=== PATIENT | male | born 1970 | race Caucasian/White ===

== ENCOUNTER → 2021-06-09 02:14 | Outpatient (CLI) | payer BC, SELFPAY ==
[2021-06-09 13:42] LABS: Influenza Control Positive
[2021-06-09 20:34] LABS: SARS-CoV-2 RNA PCR Positive
== END ==
PROVIDERS: PCP Family Medicine; Visit Provider Physician Assistant
DX: R50.9 Fever, unspecified (principal); R68.89 Other general symptoms and signs; R05.9 Cough, unspecified; U07.1 COVID-19
CPT/HCPCS: 87804; C9803; U0003; U0005

== ENCOUNTER 2022-07-18 13:47 | Outpatient (NON) | payer BC, SELFPAY | END 2022-07-18 13:48 | disposition home or self-care (01) | PROVIDERS: PCP Family Medicine; Visit Provider Nurse Practitioner | DX: L02.214 Cutaneous abscess of groin (principal) | CPT/HCPCS: 87070; 87075; 87147; 87181; 87186; 87205 ==

== ENCOUNTER 2024-12-13 15:07 | Emergency (ER) | payer BC, SELFPAY ==
--- NOTE | ~2024-12-13 | XR_ITS ---
EXAM: XR knee RT 3V DATE: 12/13/2024 15:48 HISTORY: pain with trauma . COMPARISON: None available. FINDINGS: Decreased mineralization. No fracture. Suggestion of lateral patellar subluxation in the f rontal and oblique views, patella is normally located in the sunrise view. No lytic or blastic lesion . Status post ACL repair. Moderate tricompartmental osteoarthritis. No erosion or periosteal change. Suggestion of inferior patellar tendon thickening with overlying subcutaneous stranding. Small knee j oint effusion. IMPRESSION: No acute fracture detected. Possible patellar tendon injury, correlate for pain/tendernes s, or mechanism of injury/symptoms that would suggest prior patellar dislocation with subsequent relo cation. Reviewed, dictated and finalized at location K. IMPRESSION: No acute fracture detected. Possible patellar tendon injury, correl ate for pain/tenderness, or mechanism of injury/symptoms that would suggest john or patellar dislocation with subsequent relocation.
--- OUTSIDE RECORDS SUMMARY | 2024-12-13 15:09 | XMS_ITS | Clinical Summary ---
Author Organization [facility] Address [address] [place] [id number] Care Team Providers Care Firearms Model Maker Name Role Phone Unavailable Primary Care Provider Unavailabl e Social History Tobacco Use Types Packs/Day Years Used Date Smoking Tobacco: Never Assessed Sex and Gender Information Value Date Recorded Sex Assigned at Not on file Legal Sex Male 7:21 PM CDT Gender Identity Not on file Sexual Orientation Not on file Plan of Treatment Health Maintenance Due Date Last Done Comments Colorectal Cancer Screening Colonoscopy (10 Years) 1972 Annual Physical 1975 Hepatitis C 1990 DTaP, Tdap and Td Vaccines ( 1 - Tdap) 1991 Pneumococcal Vaccine: 50+ Years (1 of 1 - PCV) 2022 Zoster Vaccines (1 of 2) 2022 COVID-19 Vaccine (1 - 2023-2 5 season) 2024 Hepatitis B Vaccines Completed 01/06/2016, 08/03/2015, 07/06/2015 Meningococcal B Vaccine Aged Out No l onger eligible based on patient's age to complete this topic Meningococcal Vaccine Aged Out No vijay nitin eligible based on patient's age to complete this topic RSV Immunizations Under 20 Months Aged Out No longer eligible b ased on patient's age to complete this topic
--- OUTSIDE RECORDS SUMMARY | 2024-12-13 15:09 | XMS_ITS | Clinical Summary ---
Author Organization [facility] Address [address] [place] [address] Phone Care Team Providers Care Classroom Paraprofessional Name Role Phone Heri Pagan MD Primary Care Provider Allergies Active Allergy Reactions Criticality Noted Date Comments Lisinopril Other (see Comments) 08/21/2023 COUGH Medications TRULICITY 0.75 MG/0.5ML Solution Pen-injector TAKES ON SUNDAY NIGHTS 5 9 Active fenofibrate 160 MG Tablet Take 160 mg by mouth nightly. 4 9 Active metFORMIN (GLUCOPHAGE-XR) 500 MG TABLET SR 24 HR TK 4 TS PO QD WITH THE SNEHA MEAL 1 9 Active pioglitazone (ACTOS) 45 MG Tablet TK 1 T PO ONCE QHS 3 9 Active ondansetron (ZOFRAN-ODT) 4 MG TABLET DISPERSIBLEIndi cations:Flu-lik e symptoms Take 1 Tab by mouth every 8 hours as needed for Nausea - 1st line. 10 Tab 9 Active Additional Information Patient not taking.Reported on 06/16/2021 albuterol 108 (90 Base) MCG/ACT Aerosol Solution INHALE 1 PUFF BY MOUTH EVERY 4 HOURS NEEDED FOR SHORTNESS OF BREATH OR WHEEZING 1 Active furosemide (LASIX) 20 MG Tablet Take 20 mg by mouth daily as needed. 9 Active guaiFENesin-cod eine (guaiFENesin AC) 100-10 MG/5ML Solution TAKE 5 ML BY MOUTH EVERY 6 HOURS NEEDED FOR COUGH 2 Active potassium chloride CR (KLORCON) 10 MEQ Tablet Controlled Release Take 10 mEq by mouth daily as needed. 9 Active acetaZOLAMIDE (DIAMOX) 250 MG Tablet Take 2 Tablets by mouth 2 times daily. 10 Tablet 4 Active Active Problems No known active problems Family History Medical History Relation Name Comments Aneurysm Father BRAIN STEM AND ABDOMINAL Heart Attack Father Hypertension Father Stroke Father Diabetes Mother Heart Attack Mother Relation Name Status Comments Father Mother Alive Social History Tobacco Use Types Packs/Day Years Used Date Smoking Tobacco: Never Smokeless Tobacco: Never Alcohol Use Standard Drinks/Week Comments Not Currently 0 (1 standard drink = 0.6 oz pur e alcohol) Sexually Active Control Partners Comments Not Currently Sex and Gender Information Value Date Recorded Sex Assigned at Not on file Legal Sex Male 4:56 PM CDT Gender Identity Not on file Sexual Orientation Not on file Last Filed Vital Signs Vital Sign Reading Time Taken Comments Blood Pressure 151/93 09/03/2023 1:12 PM CDT Pulse 71 09/03/2023 1:12 PM CDT Temperature 36.3 C (97.3 F) 09/03/2023 1:12 PM CDT Respiratory Rate 15 09/03/2023 1:12 PM CDT Oxygen Saturation 100% 09/03/2023 1:12 PM CDT Inhaled Oxygen Concentration - - Weight 164.7 kg (363 lb) 09/03/2023 10:25 AM CDT Height 180.3 cm (5' 11) 09/03/2023 10:25 AM CDT Body Mass Index 50.63 09/03/2023 10:25 AM CDT Plan of Treatment Health Maintenance Due Date Last Done Comments Hepatitis C Virus (HCV) Screening 1972 TdaP Immunization 1972 Cologuard 2017 Colonoscopy 2017 Colorectal Cancer Screening 2017 Immunochemical Fecal Occult Blood 2017 Pneumococcal Immunization (5 0+ years) (1 of 1 - PCV) 2022 Zoster Immunization (1 of 2) 2022 SARS-COV-2 Immunization ( - 2023- season) 2024 Influenza Immunization (Seas on Ended) 2025 Respiratory Syncytial Virus (RSV) Immunization (Adult) (1 - 1-dose 75+ series) 2047 Hepatitis B Immunization Completed 016, 08/03/2015, 07/06/2015 Human Papillomavirus (HPV) Immunization Aged Out No longer eligible b ased on patient's age to complete this topic Meningococcal Immunization (ACWY) Aged Out No longer eligible b ased on patient's age to complete this topic Rotavirus Immunization Aged Out No lo nger eligible based on patient's age to complete this topic Medical Devices Implanted Type Area Custodian Athletic Equipment Device Identifier Shelf Expiration Date Model / Serial / Lot Left Lens Implanted:Qty: 1 on 09/03/2023 by Magali George MD PhD at [facility] Left: Eye [employer] 04/10/2024 [id number] / [id number] / [id number] Insurance Care Teams Classroom Paraprofessional Relationship Specialty Start Date End Date Heri Pagan MD [address] [place] [address] PCP - General Family Medicine 09/03/23
--- OUTSIDE RECORDS SUMMARY | 2024-12-13 15:09 | XMS_ITS | Referral Summary ---
Author Organization [address] Address [address] [place] [address] Care Team Providers Care Transmission Repairer Name Role Phone Heri Pagan MD Primary Care Provider Allergies Active Allergy Reactions Criticality Noted Date Comments Codeine Hydrocodone Medications dulaglutide (TRULICITY) 0.75 mg/0.5 mL pen injector 9 Active metFORMIN XR (GLUCOPHAGE XR) 500 mg 24 hr tablet TK 4 TS PO QD WITH THE SNEHA MEAL 2 9 Active pioglitazone (ACTOS) 45 mg tablet TK 1 T PO ONCE QHS 9 Active furosemide (LASIX) 20 mg tablet TK 1 T PO QD 3 9 Active POTASSIUM CHLORIDE ER 10 mEq CR tablet TK 1 T PO QD WF 3 9 Active fenofibrate (TRIGLIDE) 160 mg tablet TK 1 T PO QD 1 9 Active albuterol HFA (PROVENTIL HFA,VENTOLIN HFA,PROAIR HFA) 90 mcg/actuation inhaler INHALE 1 PUFF BY MOUTH EVERY 4 HOURS NEEDED FOR SHORTNESS OF BREATH OR WHEEZING 2 Active fluticasone propionate (FLONASE) 50 mcg/actuation nasal sprayIndication s:Acute frontal sinusitis, recurrence not specified Administer 2 sprays into each nostril daily 3 each 4 Active cyclobenzaprine (FLEXERIL) 5 mg tabletIndicatio ns:Acute right-sided thoracic back pain Take 1 tablet (5 mg total) by mouth 3 (three) times a day as needed for muscle spasms 30 tablet 4 Active Active Problems Problem Noted Date Diagnosed Date Type 2 diabetes mellitus 10/25/2013 Overview (09/14/2016): DMII WO CMP NT ST UNCNTR Hyperlipidemia 10/25/2013 Overview (09/14/2016): HYPERLIPIDEMIA NEC/NOS Social History Tobacco Use Types Packs/Day Years Used Date Smoking Tobacco: Never Sex and Gender Information Value Date Recorded Sex Assigned at Not on file Legal Sex Male 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 Gender Identity Not on file Sexual Orientation Not on file Last Filed Vital Signs Vital Sign Reading Time Taken Comments Blood Pressure 144/82 07/07/2023 2:12 PM SCUBA DIVING INSTRUCTOR Pulse 82 07/07/2023 2:12 PM SCUBA DIVING INSTRUCTOR Temperature 36.6 C (97.9 F) 07/07/2023 2:12 PM SCUBA DIVING INSTRUCTOR Respiratory Rate 18 07/07/2023 2:12 PM SCUBA DIVING INSTRUCTOR Oxygen Saturation 99% 07/07/2023 2:12 PM SCUBA DIVING INSTRUCTOR Inhaled Oxygen Concentration - - Weight 162.2 kg (357 lb 9.4 oz) 07/07/2023 2:12 PM SCUBA DIVING INSTRUCTOR Height 180.3 cm (5' 10.98) 07/07/2023 2:[address] Body Mass Index 49.9 07/07/2023 2:12 PM SCUBA DIVING INSTRUCTOR Plan of Treatment Not on file Insurance [facility] Care Teams Transmission Repairer Relationship Specialty Start Date End Date Heri Pagan MD [address] [facility] [[email or web address] [address] [place] [address] PCP - General Family Medicine 06/17/23
--- OUTSIDE RECORDS SUMMARY | 2024-12-13 15:09 | XMS_ITS | Clinical Summary ---
Author Organization [address] Address [address] [facility] [place] [address] Care Team Providers Care E Commerce Marketing Manager Name Role Phone Heri Pagan MD Primary [...] UNCNTR Hyperlipidemia 10/25/2013 Overview (09/14/2016): HYPERLIPIDEMIA NEC/NOS Medical History Medical History Date Comments Hypertension Hypertension Diabetes mellitus (HCC) Diabetes Hyperlipidemia Hyperlipidemia Social History Tobacco Use Types Packs/Day Years Used Date Smoking Tobacco: Never Sex and Gender Information Value Date Recorded Sex Assigned at Not on file Legal Sex Male 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 Gender Identity Not on file Sexual Orientation Not on file Obstetrics History Last Filed Vital Signs Vital Sign Reading Time Taken Comments Blood Pressure 144/82 07/07/2023 2:12 PM AGENCY SALES DEVELOPMENT ASSOCIATE Pulse 82 07/07/2023 2:12 PM AGENCY SALES DEVELOPMENT ASSOCIATE Temperature 36.6 C (97.9 F) 07/07/2023 2:12 PM AGENCY SALES DEVELOPMENT ASSOCIATE Respiratory Rate 18 07/07/2023 2:12 PM AGENCY SALES DEVELOPMENT ASSOCIATE Oxygen Saturation 99% 07/07/2023 2:12 PM AGENCY SALES DEVELOPMENT ASSOCIATE Inhaled Oxygen Concentration - - Weight 162.2 kg (357 lb 9.4 oz) 07/07/2023 2:12 PM AGENCY SALES DEVELOPMENT ASSOCIATE Height 180.3 cm (5' 10.98) 07/07/2023 2:[address] Body Mass Index 49.9 07/07/2023 2:12 PM AGENCY SALES DEVELOPMENT ASSOCIATE Plan of Treatment Health Maintenance Due Date Last Done Comments Albumin Creatinine Ratio, Urine 1972 Colon Cancer Screening-Colonoscopy 1972 Depression Screening 1972 Hemoglobin A1C 1972 Hepatitis C Screening 1972 Prostate Cancer Screening-PSA 1972 eGFR 1972 Dilated Eye Exam 1972 Foot Exam 1972 Lipid Panel 1972 DTaP/Tdap/Td Vaccine (1 - Tdap) 1983 Regular Well Visit/Exam 18-64 1990 Pneumococcal vaccine <65 (1 of 2 - PCV) 1991 Zoster Vaccine (1 of 2) 2022 Influenza Vaccine (Season Ended) 2025 Hepatitis B Screening Completed 01/06/2016 , 08/03/2015, 07/06/2015 Insurance [id number] [id number] Care Teams E Commerce Marketing Manager Relationship Specialty Start Date End Date Heri Pagan MD [address] [place] [address] PCP - General Family Medicine 06/17/23
[2024-12-13 15:20] VITALS: BP 154/76; PULSE 88; RESP 16; TEMP 36.2; O2SAT 99
--- NOTE | 2024-12-13 15:33 | ED.LOWEXIN ---
HPI - Extremity Injury (Lower) General Chief Complaint: Extremity Injury, Lower Stated Complaint: Right Knee Pain patient presents to Express Care with complaints of right knee pain that began yesterday after he was throwing something away and slipped due to the knee giving out. Noted that he caught himself did not fall but then began to have significant pain in the knee. patient is walking with crutches due to pain. Denies bruising or redness. Related Data Home Medications ?Medication ?Instructions ?Recorded ?Confirmed ?Last Taken ?Type cholecalciferol (vitamin D3) 125 125 mcg PO DAILY 09/06/20 10/07/24 Unknown History mcg (5,000 unit) capsule Allergies Allergy/AdvReac Type Severity Reaction Status Date / Time ciprofloxacin (From Cipro) Allergy Unknown Verified 12/13/24 15:19 lisinopril AdvReac Mild Cough Verified 12/13/24 15:19 Review of Systems Constitutional: Constitutional: Reports as per HPI and Denies weakness Eyes: Eyes: Reports no additional eye complaints Cardiovascular: Cardiovascular: Reports no additional cardiovascular complaints Respiratory: Respiratory: Reports no additional respiratory complaints Gastrointestinal: Gastrointestinal: Reports no additional gastrointestinal complaints Genitourinary: Genitourinary: Reports no additional male genitourinary complaints Musculoskeletal: Musculoskeletal: Reports as per HPI, Reports arthralgias, Reports joint swelling and Denies muscle cramps Integumentary/Breasts: Skin/Breast: Reports as per HPI, Denies pruritus, Denies rash and Denies skin ulcer Neurologic: Reports as per HPI, Denies numbness and Denies weakness Psychiatric: Psychiatric: Reports no additional psychiatric complaints Endocrine: Endocrine: Reports no additional endocrine complaints Hematologic/Lymphatic: Hematologic/Lymphatic: Reports no additional hematologic/lymphatic complaints Allergic/Immunologic: Allergic/Immunologic: Reports no additional allergic/immunologic complaints [facility] Past Medical History Medical History PVD (posterior vitreous detachment), left eye Obesity Diabetes Surgical History Surgical History History of repair of ACL right History of repair of ACL 1999 Family History Family History Father Heart disease Hypertension Father Hypertension Cerebrovascular accident Family history of thoracic aortic aneurysm Mother Family history of diabetes mellitus in first degree relative Son Asthma Other Family history of polycystic kidney disease Social History Social History Smoking status: Never smoker Second hand tobacco smoke exposure: No Alcohol intake: never Substance use: never Substance use type: does not use Living arrangements: with family Occupation/Education: occupation Gender identity (if verbalized by the patient): Male Exam Const: General: healthy appearing and no acute distress Nutritional Appearance: well nourished Orientation/consciousness: patient oriented x3 Limitations: no limitations Resp: Effort & Inspection: normal respiratory effort Cardio: Rate: regular rate Skin: General skin exam: normal color Rashes: no rashes Wounds: no wounds Neuro: General: patient oriented x3 Speech: normal speech Gait exam (Neuro): gait abnormal (limited by pain, using crutches ) Extrem: Right lower extremity: knee Details: normal to inspection, tenderness Location: of the lateral joint line and abnormal ROM; inspection normal, no ecchymosis, no crepitus, no penetrating wound, no deformity and no unusual warmth Psych: Mental Status: mental status grossly normal Affect: normal affect Attitude: cooperative Course Course Level of Care: Express Care Visit Vital Signs Vital signs: Vital Signs Temperature 97.1 F L 12/13/24 15:20 Pulse Rate 88 12/13/24 15:20 Respiratory Rate 16 12/13/24 15:20 Blood Pressure 154/76 H 12/13/24 15:20 Pulse Oximetry 99 12/13/24 15:20 Oxygen Delivery Room Air 12/13/24 15:20 Temperature 97.1 F L 12/13/24 15:20 Pulse Rate 88 12/13/24 15:20 Respiratory Rate 16 12/13/24 15:20 Blood Pressure 154/76 H 12/13/24 15:20 Pulse Oximetry 99 12/13/24 15:20 Oxygen Delivery Room Air 12/13/24 15:20 MDM - Extremity Injury (Lower) MDM Narrative Medical decision making narrative: X-rays of knee ordered. Concerns for internal injury. Discharge instructions reviewed with patient, as well as provided in writing per nursing staff. The instructions also include specific and strict return/GO TO THE ER as well as f/u information. All questions have been answered, and the patient deny any further questions with discharge and discharge plan. Differential Diagnosis Differential diagnosis: Likely acute internal derangement of knee and other (knee sprain, arthritis ) Medical Records Attestation: I reviewed the patient's medical records. Imaging Data Attestation: I personally reviewed and interpreted this imaging study as follows: My impression: no acute findings. Arthritic changes noted. Radiologist's impression: IMPRESSION: No acute fracture detected. Possible patellar tendon injury, correlate for pain/tenderness, or mechanism of injury/symptoms that would suggest prior patellar dislocation with subsequent relocation. Reviewed, dictated and finalized at location K. Discharge Plan Discharge Clinical Impression: Acute pain of right knee Patient Disposition: Home Condition: Stable Instructions: Antibiotic Form, Knee Pain (ED), Arthritis (ED) Additional Instructions: Follow-up as needed with your orthopedic physician or primary care there is moderate arthritis noted and a small joint effusion ( collection of fluid) on your x-ray. Continue resting as much as possible. Use crutches as needed for weight-bearing. Continue to use brace for extra support. Ibuprofen or naproxen as directed consistently for the next several days. Ice applied as well as elevation as much as possible. Patient Language: Vietnamese Prescriptions: No Action Trulicity 1.5 mg/0.5 mL pen injector 1.5 mg subcut WEEKLY Qty: 2 5RF cholecalciferol (vitamin D3) 125 mcg (5,000 unit) capsule 125 mcg PO DAILY albuterol sulfate [ProAir HFA] 90 mcg/actuation HFA aerosol inhaler 1 puff INHALATION Q4H PRN (Reason: shortness of breath or wheezing) Qty: 8.5 2RF fenofibrate 160 mg tablet See Rx Instructions .ROUTE .COMPLEX Qty: 90 2RF Dose Instruction: TAKE 1 TABLET BY MOUTH DAILY Rx Instructions: TAKE 1 TABLET BY MOUTH DAILY pioglitazone 45 mg tablet 45 mg PO DAILY Qty: 90 1RF metformin 500 mg tablet extended release 24 hr See Rx Instructions .ROUTE .COMPLEX Qty: 360 2RF Dose Instruction: TAKE 4 TABLETS BY MOUTH EVERY EVENING Rx Instructions: TAKE 4 TABLETS BY MOUTH EVERY EVENING Follow-up/Referrals: Heri Pagan MD [Primary Care Provider] - Stand Alone Forms: Work/School Release IP Time of Disposition: 16:12
== END 2024-12-13 16:17 | disposition home or self-care (01) ==
PROVIDERS: Emergency Provider Nurse Practitioner Family; PCP Family Medicine
DX: M25.561 Pain in right knee (principal); E11.9 Type 2 diabetes mellitus without complications; Z79.84 Long term (current) use of oral hypoglycemic drugs; Z79.85 Long-term (current) use of injectable non-insulin antidiabetic drugs; E66.9 Obesity, unspecified; Z68.43 Body mass index [BMI] 50.0-59.9, adult
CPT/HCPCS: 73562; 99213; G0463